=== PATIENT | female | born 1995 | race Caucasian/White ===

== ENCOUNTER → 2020-03-30 | Outpatient (CLI) | payer MEDICARE, OTHER | LOC: KOH-I 08:00 | DX: R74.8 Abnormal levels of other serum enzymes (principal) | CPT/HCPCS: 76705 ==

== ENCOUNTER → 2020-11-26 | Outpatient (CLI) | payer MEDICARE, OTHER ==
[2020-11-27 08:13] LABS: TRIIODOTHYRONINE (T3) 140 ng/dL (71-180)
[2020-11-27 09:14] LABS: HBSAG SCREEN Negative (Negative); HEP A AB, IGM Negative (Negative); HEP B CORE AB, IGM Negative (Negative); HEP C VIRUS AB <0.1 (0.0-0.9)
[2020-11-27 12:14] LABS: ALPHA-1-ANTITRYPSIN, SERUM 136 mg/dL (100-188); IMMUNOGLOBULIN G, QN, SERUM 643 mg/dL (586-1602)
[2020-11-27 14:14] LABS: LIVER-KIDNEY MICROSOMAL AB <1.0 Units (0.0-20.0)
[2020-11-27 15:14] LABS: ACTIN (SMOOTH MUSCLE) ANTIBODY 5 Units (0-19); MITOCHONDRIAL (M2) ANTIBODY <20.0 Units (0.0-20.0)
== END ==
LOC: LAB 08:40
PROVIDERS: Internal Medicine Gastroenterology
DX: R94.5 Abnormal results of liver function studies (principal)
CPT/HCPCS: 36415; 80074; 80076; 82103; 82784; 83516; 83540; 83550; 84480; 86038; 86376

== ENCOUNTER → 2021-07-01 | Outpatient (CLI) | payer MEDICARE, OTHER | LOC: CT 09:54 | DX: R10.9 Unspecified abdominal pain (principal) | CPT/HCPCS: Q9967 ==